=== PATIENT | female | born 1990 | race Caucasian/White ===

== ENCOUNTER 2022-10-31 09:38 | Outpatient (CLI) | payer BC, SELFPAY ==
[2022-10-31 11:39] LABS: HCG Qualitative Serum* Positive (Negative)
[2022-10-31 13:08] LABS: HCG Quantitative* < 2.39 mIU/mL
== END 2022-10-31 09:39 | disposition home or self-care (01) ==
PROVIDERS: PCP Family Medicine; Visit Provider Physician Assistant
DX: N92.0 Excessive and frequent menstruation with regular cycle (principal); N92.3 Ovulation bleeding
CPT/HCPCS: 84443; 84702; 84703

== ENCOUNTER 2022-11-07 14:44 | Outpatient (CLI) | payer BC, SELFPAY ==
--- NOTE | 2022-11-07 15:00 | CRLHL7_ITS ---
For Patients: As a result of the Cures Act, medical imaging exams and procedure reports are released immediately into your electronic medical record. You may view this report before your referring provider. If you have questions, please contact your health care provider. INDICATION: Heavy periods with spotting TECHNIQUE: Ultrasound pelvis transabdominal and transvaginal for better assessment or to better visualize the endometrium. Real time sonographic images with Spectral and color Doppler imaging of the ovaries were obtained. COMPARISON: None FINDINGS: Uterus: 7.4 centimeter x 4.1 centimeter x 5.6 centimeter normal echotexture of the myometrium. No masses. Endometrium: Transvaginal imaging was performed to better evaluate the endometrium. 0.7 millimeter in thickness. Small amount of fluid in the endometrial canal Right ovary: 3.4 centimeter x 2.0 centimeter x 2.47 no ovarian or adnexal masses. Normal arterial and venous blood flow. Left ovary: 0.8 centimeter x 1.5 centimeter x 2.1 centimeter. No ovarian or adnexal masses. Normal arterial and venous blood flow. Cul-de-sac: No significant free fluid. IMPRESSION: Small amount of fluid in the endometrial canal, otherwise unremarkable pelvic ultrasound. Dictated by Macho Velarde MD @ 11/07/2022 6:42:27 PM (Electronically Signed)
== END 2022-11-07 14:45 | disposition home or self-care (01) ==
LOC: US 14:45
PROVIDERS: PCP Family Medicine; Visit Provider Physician Assistant
DX: N92.0 Excessive and frequent menstruation with regular cycle (principal)
CPT/HCPCS: 76830; 76856

== ENCOUNTER 2025-02-09 12:40 | Emergency (ER) | payer BC, SELFPAY ==
[2025-02-09 12:46] VITALS: BP 138/99; PULSE 106; RESP 16; TEMP 36.7; O2SAT 98; BMI 26.0
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
[2025-02-09 15:51] VITALS: BP 127/99; PULSE 80; RESP 16; O2SAT 99
== END 2025-02-09 16:10 | disposition home or self-care (01) ==
LOC: ED 16:10
PROVIDERS: Emergency Provider Emergency Medicine Emergency Medical Services; PCP Family Medicine
DX: S50.12XA Contusion of left forearm, initial encounter (principal); V43.52XA Car driver injured in collision with other type car in traffic accident, initial encounter
CPT/HCPCS: 73090; 99283; 99284

== ENCOUNTER 2025-04-07 08:26 | Outpatient (CLI) | payer BC, SELFPAY ==
--- NOTE | 2025-04-07 08:45 | CRLHL7_ITS ---
For Patients: As a result of the Century Cures Act, medical imaging exams and procedure reports are released immediately into your electronic medical record. You may view this report before your referring provider. If you have questions, please contact your health care provider. DIGITAL DIAGNOSTIC BILATERAL MAMMOGRAM USING TOMOSYNTHESIS AND COMPUTER-AIDED DETECTION CLINICAL HISTORY: BILATERAL breast pain. COMPARISON: 12/21/2020. TECHNIQUE: Digital BILATERAL mammogram in four projections with computer-aided detection. Tomosynthesis was used in this interpretation. BREAST COMPOSITION: The breasts are heterogeneously dense, which may obscure small masses. FINDINGS: 3D CC/MLO BILATERAL mammogram images submitted. No suspicious masses or architectural distortion. No suspicious calcifications. No adenopathy. IMPRESSION: No findings suspicious for malignancy. RECOMMENDATIONS: Clinical follow-up and age-appropriate screening mammography. A lay language report of this examination will be provided to the patient. BI-RADS Category 2: Benign Dictated by Macho Doan MD @ 04/07/2025 9:18:56 AM jj/Dictated by: Macho Doan MD @ 04/07/2025 9:18:00 AM (Electronically Signed)
== END 2025-04-07 08:27 | disposition home or self-care (01) ==
LOC: MAMMO 08:26
PROVIDERS: PCP Registered Nurse; Visit Provider Registered Nurse
DX: N64.4 Mastodynia (principal)
CPT/HCPCS: 77066; G0279

== ENCOUNTER 2025-05-03 06:35 | Emergency (ER) | payer BC, SELFPAY ==
[2025-05-03 06:43] VITALS: BP 138/97; PULSE 105; RESP 16; TEMP 36.7; O2SAT 98; BMI 26.3
--- NOTE | 2025-05-03 06:44 | ED.GENADULT ---
HPI - General Adult General Time Seen by Provider: 06:44 Date Seen: 05/03/25 Chief complaint: Sore Throat Stated complaint: chills, sweats, body aches and throat hurts Time Seen by Provider: 05/03/25 06:43 Source: patient Mode of arrival: ambulatory History of Present Illness HPI narrative: Mary is a 35-year-old female with no significant past medical history who presents to the emergency department for evaluation of a sore throat. Patient complains of sore throat that started on Thursday. Patient states that she was seen in urgent care yesterday and had a strep test which was negative. The patient states that she has had worsening pain in her throat, difficulty swallowing, eating, drinking but has been trying to drink plenty of water. Patient also reports bilateral ear pain, and feeling extremely warm. Patient denies any fever, chills, chest pain, cough, shortness of breath. Patient denies any abdominal pain, nausea, vomiting, diarrhea. Patient is currently on her menstrual cycle and states she does have painful heavy periods. Patient took Tylenol and ibuprofen yesterday with no significant improvement of symptoms. Patient states that she did take Midol this morning to help with her menstrual cramps. Patient denies any sick contacts, no other complaints. Related Data Home Medications ?Medication ?Instructions ?Recorded ?Confirmed No Known Home Medications 05/02/25 05/02/25 Allergies Allergy/AdvReac Type Severity Reaction Status Date / Time penicillin V Allergy Mild Hives Verified 05/02/25 08:34 Review of Systems Narrative: Past medical history, past surgical history, medications, allergies, family history, and social history were reviewed with the patient. No additional pertinent items. A medically appropriate review of systems was performed with pertinent positives and negatives noted in HPI, all other systems negative. PFSH PFS Medical History History of tobacco use ?Z87.891 - Personal history of nicotine dependence (ICD-10) Surgical History History of section ?Z98.891 - History of uterine scar from previous surgery (ICD-10) Family History Other Protein C deficiency Social History What is your current living situation?: I presently have a place to live Problems where you live: no known problems In the past 12 months, utilities in danger of being shut off: no In the past 12 mos, have been you worried that your food would run out before you had money to buy more?: never true In the past 12 mos, the food you bought just didn't last and you didn't have money to buy more?: never true Smoking Status: Former smoker What tobacco products do you use: cigarettes Smoking quit date/years: <= 15 years ago Do you use any of these nicotine containing products: Vaping Products Second hand tobacco smoke exposure: Yes How often do you have a drink containing alcohol: 2-4 times a month How many standard drinks containing alcohol do you have on a typical day: 3 or 4 How often do you have six or more drinks on one occasion: Never AUDIT-C Alcohol total score: 3 Non-prescribed substance use: denies use How often does anyone, including family, friends and others, physically hurt you: never How often does anyone, including family, friends and others, insult or talk down to you: never How often does anyone, including family, friends and others, threaten you with harm: never How often does anyone, including family, friends and others, scream or curse at you: never service: No Exam Narrative: Exam Narrative: General: Afebrile, no acute distress HEENT: Normocephalic, atraumatic, TMs clear bilaterally, nonbulging, no mastoid tenderness, conjunctiva normal. Posterior pharynx with erythema, no significant swelling, no exudates, no asymmetry MMM Neck: Supple, mild tender lymphadenopathy Cardio: regular rate. regular rhythm Resp: Normal work of breathing, no respiratory distress, lungs clear bilaterally, no wheezing, rhonchi, rales Chest/Back: no visual signs of trauma, no midline tenderness, no CVA tenderness Abdomen: soft, non distension, no tenderness, no peritoneal signs Neuro: alert and fully oriented. CN II-XII grossly intact. Grossly normal strength and sensation in all extremities. MSK: no deformities. Normal range of motion Integumentary/Skin: no rash visualized, normal color Psych: normal affect, normal behavior Const: Vital Signs, click to edit/add: Vital Signs - 24 hr 05/03/25:43 05/03/25 08:42 Temperature 98.1 F Pulse Rate [Pulse Oximeter] 105 H 77 Respiratory Rate 16 16 Blood Pressure [Ri t Upper Arm] 138/97 H 118/78 Pulse Oximetry 98 99 Oxygen Delivery Me thod Room Air Room Air Course Course ED Course: 35-year-old female here with worsening sore throat, bilateral ear pain, subjective fever. Upon arrival patient is nontoxic appearing, afebrile, in distress. Patient is slightly tachycardic upon arrival with heart rate 105, blood pressure 138/97, oxygen 98% on room air. Physical examination with some mild erythema in the posterior pharynx with no significant swelling, no exudates, no asymmetry. TMs nonbulging, no evidence of acute infection, lungs clear to auscultation bilaterally. Patient had rapid strep negative at urgent care yesterday. Suspect likely viral illness. Patient was treated with dose of ibuprofen, dexamethasone in the emergency department. COVID/influenza/RSV negative. On re-evaluation patient reports improvement of symptoms, feels comfortable discharge home. Recommend continue supportive care, Tylenol, ibuprofen, close outpatient follow-up insert return precautions discussed. Patient understands and agrees with the plan. Vital Signs Vital signs: Initial Vital Signs Temperature 98.1 F 05/03/25 06:43 Temperature Source Temporal Artery Scan 05/03/25 06:43 Pulse Rate 105 H 05/03/25 06:43 Respiratory Rate 16 05/03/25 06:43 Blood Pressure 138/97 H 05/03/25 06:43 Blood Pressure Mean 110 H 05/03/25 06:43 Blood Pressure Position Semi-Fowlers 05/03/25 06:43 Pulse Oximetry 98 05/03/25 06:43 Oxygen Delivery Method Room Air 05/03/25 06:43 Vital Signs Temperature 98.1 F 05/03/25 06:43 Pulse Rate 105 H 05/03/25 06:43 Respiratory Rate 16 05/03/25 06:43 Blood Pressure 138/97 H 05/03/25 06:43 Pulse Oximetry 98 05/03/25 06:43 Oxygen Delivery Method Room Air 05/03/25 06:43 Temperature 98.1 F 05/03/25 06:43 Pulse Rate 77 05/03/25 08:42 Respiratory Rate 16 05/03/25 08:42 Blood Pressure 118/78 05/03/25 08:42 Pulse Oximetry 99 05/03/25 08:42 Oxygen Delivery Method Room Air 05/03/25 08:42 Medications Administered Medications: Discontinued Medications Generic Name Dose Route Start Last Admin Trade Name Sara PRN Reason Stop Dose Admin Dexamethasone 10 mg 05/03/25 06:58 05/03/25 07:06 Dexamethasone 10 Mg/Ml Pf PO 05/03/25 06:59 10 mg ONCE ONE Administration Ibuprofen 600 mg 05/03/25 07:00 05/03/25 07:05 Ibuprofen 200 Mg Tablet PO 05/03/25 07:01 600 mg ONCE ONE Administration Medical Decision Making Lab Data Labs: Lab Results 05/03/25 Range/Units 06:58 SARS-CoV-2 (PCR) Negative SARS-CoV-2 (Negative) Influenza Type A (PCR) Negative PCR FLU A (Negative) Influenza Type B (PCR) Negative PCR FLU B (Negative) RSV (PCR) Negative PCR RSV (Negative) Discharge Plan Discharge Clinical Impression: Acute sore throat Patient Disposition: Home, Self-Care Condition: Improved Additional Instructions: Please follow-up with your primary care provider in the next 3-5 days for further evaluation and follow-up. Please rest, drink plenty of fluids. Please drink hot tea, throat lozenges, cough drops for comfort. Please alternate taking ibuprofen 600 mg and Tylenol 1000 mg every 6 hours as needed for pain. Return to the emergency department today worsening symptoms. It was a pleasure taking care of you today. We hope you feel better soon. Prescriptions: No Action No Known Home Medications Follow Up/Referrals: Emilee Arroyo, IMMIGRATION CONSULTANT [Primary Care Provider, Family Practice] Stand Alone Forms: [employer] Info Instructions
[2025-05-03] MEDS: IBUPROFEN 200 MG TABLET 600 MG PO (07:05)
[2025-05-03] MEDS: DEXAMETHASONE 10 MG/ML PF PO (07:06)
[2025-05-03 07:55] LABS: PCR FLU A Negative PCR FLU A (Negative); PCR FLU B Negative PCR FLU B (Negative); PCR RSV Negative PCR RSV (Negative); SARS PCR* Negative SARS-CoV-2 (Negative)
[2025-05-03 08:42] VITALS: BP 118/78; PULSE 77; RESP 16; O2SAT 99
== END 2025-05-03 09:17 | disposition home or self-care (01) ==
PROVIDERS: Emergency Provider Emergency Medicine; PCP Registered Nurse
DX: J02.9 Acute pharyngitis, unspecified (principal); H92.03 Otalgia, bilateral
CPT/HCPCS: 87631; 99283; A9270; J1100